=== PATIENT | female | born 1985 | race Caucasian/White ===

== ENCOUNTER → 2024-03-17 15:06 | Outpatient (REF) | payer OTHER, SELFPAY ==
[2024-03-17 11:54] LABS: % Basophils 0.3 % (0-2); % Eosinophils 0.4 % (0-6); % Immature Granulocytes 1.7 % (0-0.5); % Lymphocytes 8.5 % (20.5-51.1); % Monocytes 5.9 % (1.7-9.3); % Neutrophils 83.2 % (42.2-75.2); Absolute Immature Granulocytes 0.2 10^3/uL (0-0.05); Absolute Lymphocytes 0.8 10^3/uL (1.2-3.4); Absolute Monocytes 0.6 10^3/uL (0.1-0.6); Absolute Neutrophils 7.9 10^3/uL (1.4-6.5); Hematocrit 36.3 % (37.0-47.0); Hemoglobin 12.1 g/dL (12.0-16.0); Mean Corp Hgb Conc. 33.3 g/dL (33.0-37.0); Mean Corpuscular Volume 89.9 fL (81.0-99.0); Mean Platelet Volume 13.9 fL (7.4-10.4); Nucleated Red Blood Cells % 0 %; Platelet Count 57 10^3/uL (130-400); Red Blood Cell Count 4.04 10^6/uL (4.20-5.40); Red Cell Dist. Width 12.7 % (11.5-14.5); White Blood Cell Count 9.4 10^3/uL (4.8-10.8)
== END ==
LOC: OIDL 15:06
PROVIDERS: ATTENDING PHYSICIAN Internal Medicine Hematology & Oncology
DX: D69.6 Thrombocytopenia, unspecified (principal)
CPT/HCPCS: 85025

== ENCOUNTER 2024-03-31 15:42 | Outpatient (RCR) | payer OTHER, SELFPAY ==
[2024-03-31 08:50] LABS: % Basophils 0.3 % (0-2); % Immature Granulocytes 1.5 % (0-0.5); % Lymphocytes 10.7 % (20.5-51.1); % Monocytes 6.6 % (1.7-9.3); % Neutrophils 79.9 % (42.2-75.2); Absolute Eosinophils 0.1 10^3/uL (0-0.7); Absolute Immature Granulocytes 0.1 10^3/uL (0-0.05); Absolute Lymphocytes 0.9 10^3/uL (1.2-3.4); Absolute Monocytes 0.5 10^3/uL (0.1-0.6); Absolute Neutrophils 6.4 10^3/uL (1.4-6.5); Hematocrit 36.6 % (37.0-47.0); Hemoglobin 12.3 g/dL (12.0-16.0); Mean Corp Hgb Conc. 33.6 g/dL (33.0-37.0); Mean Corpuscular Hgb 30.3 pg (27.0-31.0); Mean Corpuscular Volume 90.1 fL (81.0-99.0); Mean Platelet Volume 13.4 fL (7.4-10.4); Platelet Count 46 10^3/uL (130-400); Red Blood Cell Count 4.06 10^6/uL (4.20-5.40)
== END 2024-04-08 23:59 | disposition home or self-care (01) ==
LOC: OID 15:42
PROVIDERS: ATTENDING PHYSICIAN Internal Medicine Hematology & Oncology
DX: D69.6 Thrombocytopenia, unspecified (principal); E61.1 Iron deficiency
CPT/HCPCS: 36415; 85025

== ENCOUNTER → 2024-04-07 13:23 | Outpatient (REF) | payer OTHER, SELFPAY | LOC: PNTC 13:23 | PROVIDERS: ATTENDING PHYSICIAN Obstetrics & Gynecology | DX: D69.6 Thrombocytopenia, unspecified (principal) | CPT/HCPCS: 76816 ==

== ENCOUNTER 2024-04-15 19:35 | Inpatient (IN) | payer OTHER, SELFPAY ==
[2024-04-15 19:43] VITALS: BP 104/51; BMI 23.0
[2024-04-15 20:53] LABS: % Basophils 0.4 % (0-2); % Eosinophils 1.3 % (0-6); % Immature Granulocytes 1.9 % (0-0.5); % Lymphocytes 10.5 % (20.5-51.1); % Monocytes 6.5 % (1.7-9.3); % Neutrophils 79.4 % (42.2-75.2); Absolute Eosinophils 0.1 10^3/uL (0-0.7); Absolute Immature Granulocytes 0.2 10^3/uL (0-0.05); Absolute Lymphocytes 1.1 10^3/uL (1.2-3.4); Absolute Monocytes 0.7 10^3/uL (0.1-0.6); Absolute Neutrophils 8.5 10^3/uL (1.4-6.5); Hematocrit 36.3 % (37.0-47.0); Hemoglobin 12.4 g/dL (12.0-16.0); Mean Corp Hgb Conc. 34.2 g/dL (33.0-37.0); Mean Corpuscular Hgb 29.6 pg (27.0-31.0); Mean Corpuscular Volume 86.6 fL (81.0-99.0); Nucleated Red Blood Cells % 0 %; Red Blood Cell Count 4.19 10^6/uL (4.20-5.40); Red Cell Dist. Width 13.2 % (11.5-14.5); White Blood Cell Count 10.7 10^3/uL (4.8-10.8)
[2024-04-15 21:11] LABS: Platelet Count 37 10^3/uL (130-400)
[2024-04-15 22:50] VITALS: BP 101/59
[2024-04-15 23:08] VITALS: BP 94/54
[2024-04-16 01:58] VITALS: BP 91/58
[2024-04-16 02:21] VITALS: BP 91/58
[2024-04-16 02:38] VITALS: BP 103/61
[2024-04-16 04:27] VITALS: BP 95/61
[2024-04-16 08:46] LABS: Hematocrit 37.2 % (37.0-47.0); Hemoglobin 12.7 g/dL (12.0-16.0); Mean Corp Hgb Conc. 34.1 g/dL (33.0-37.0); Mean Corpuscular Hgb 30.1 pg (27.0-31.0); Mean Corpuscular Volume 88.2 fL (81.0-99.0); Mean Platelet Volume 13.7 fL (7.4-10.4); Platelet Count 50 10^3/uL (130-400); Red Blood Cell Count 4.22 10^6/uL (4.20-5.40); Red Cell Dist. Width 13.3 % (11.5-14.5); White Blood Cell Count 8.8 10^3/uL (4.8-10.8)
--- NOTE | 2024-04-16 10:51 | CON.ONC ---
Impression
Impression
Thrombocytopenia associated with
Plan
Plan
Patient was labeled as gestational thrombocytopenia although it is unclear if this is truly her diagnosis based on the relative low platelet count (37,000) and refractoriness following transfusion of 2 units of platelets. Typically patient will
have a much brisker response to platelet transfusion unless they have a concomitant immune destructive cause of thrombocytopenia.
Additional 2 units were ordered but not available till at the earliest this afternoon because of [facility] supply chain issues.
Patient is not in labor and is waiting induction.
My recommendation would be to withhold induction here at [facility] and recommend transfer her to a tertiary care institution.
Long discussion with patient's primary manager systems, neonatology, and blood bank.
Tertiary care center will have more robust blood bank support as well as NICU/pediatric hematology support in case if there is evidence of alloimmune thrombocytopenia (NAIT).
Patient History
History of Present Illness
Yolanda is a 38 y/o female consulted for thrombocytopenia during . Previously had a delivery in 2020 with associated thrombocytopenia at that time with platelet count = 56,000. Previous platelet count prior was 81,000. Patient was started
by ER previous manager systems on prednisone 20 mg daily. Platelet count irving to 63,000. She was then switched to prednisone 1 mg/kg/day without response to prednisone. Follow-up platelet count was only 49,000. She was therefore deemed to be
steroid refractory. Following delivery her platelet count did rise to 102,000 but there is no history or evidence of normalization and she never had follow-up CBCs checked. At that time she was managed with platelet transfusions in the peripartum
period. She subsequently moved to [facility] where she really had no medical issues or follow-up.
She currently is being admitted for induction. She is not currently in labor. Initial platelet count yesterday = 37,000 and she was transfused 2 units of platelets with follow-up platelet count only improved to 50,000. She is hoping to avoid
epidural catheterization but apparently did have it in 2020.
As of now, there are no Rh- units of platelets available in our blood bank. We are trying to get approval from the [place] [facility] to have 2 additional units of Rh- platelets delivered by this afternoon.
Patient is anxious to determine what we are going to do about delivering her baby. Otherwise she has no additional complaints.
Past-Medical/Surgical History
PMH: multiple sclerosis since 2007, has been off her medications since early in .
Iron deficiency anemia
Thrombocytopenia worsened during in 2020 and 2023 but unclear if this is gestational thrombocytopenia or combination gestational + ITP versus alternative diagnosis of thrombocytopenia
SH:
Patient denies ever using tobacco.
Social use of alcohol.
Denies any illicit drug use.
Occupational Status: Current: Mental Health Therapist.
Patient has not had any occupational exposure.
Marital Status: Patient is
Gynecological History
Age at Menarche 13 years. Patient reports 2 pregnancies. Her age at first full term was 34 years.
Family Medical History
Family history is non-contributory.
Patient Medication
�Medication �Instructions �Recorded �Confirmed �Last Taken �Type
Vitamin D3 5,000 unit PO DAILY Supplement 10/06/19 04/15/24 04/15/24 08:00 History
Vitamin Tablet 1 tab PO DAILY Supplement 08/09/20 04/15/24 04/15/24 08:00 History
Active Medications
Generic Name Dose Route Start Last Admin
Trade Name Freq PRN Reason Stop Dose Admin
Butorphanol Tartrate 1 mg 04/15/24 20:37
Butorphanol (Stadol) 1 Mg/1 Ml Vial IV 05/13/24 20:36
Q1HPRN PRN
pain
Calcium Carbonate 400 mg 04/15/24 20:37
Calcium Antacid 200 Mg (Calcium Carbonate 500 Mg) Chew Tablet PO 05/13/24 20:36
Q6HPRN PRN
indigestion
Sodium Chloride 1,000 mls @ 0 mls/hr 04/15/24 20:45
Nss IV 04/16/24 20:37
DIRECTED KAELYN
As Directed
Promethazine HCl 12.5 mg/ 50.5 mls @ 101 mls/hr 04/15/24 20:37
Sodium Chloride IV 05/13/24 20:36
Q4HPRN PRN
nausea
Oxytocin/Sodium Chloride 30 unit in 500 mls @ 0 mls/hr 04/15/24 20:45
Pitocin 30 Units/Nss 500 Ml IV 04/16/24 20:44
DIRECTED KAELYN
As Directed
Lidocaine HCl 0 ml 04/15/24 20:37
Lidocaine Mpf 1% 30 Ml Vial INFIL 05/13/24 20:36
PRN PRN
REPAIR EPISIOTOMY/LACERATION
Methylergonovine Maleate 0.2 mg 04/15/24 20:37
Methergine (0.2 Mg/Ml) 1 Ml Injection IM
ONCE PRN PRN
excessive bleed post delivery
Sodium Chloride 0 flush 04/15/24 21:00
Sodium Chloride 0.9% (Flush) Syringe IV 05/13/24 20:59
PER PROTOCOL KAELYN
Terbutaline Sulfate 250 mcg 04/15/24 20:37
Terbutaline (1,000 Mcg/Ml) 1 Ml Vial SC
ONCE PRN PRN
tachysystole
Physical Exam
-
General: Well Developed, Well Nourished and No Apparent Distress
GI: Other (gravid abdomen)
Labs
Lab Results
WBC 8.8 10^3/uL (4.8-10.8) 04/16/24 08:18
RBC 4.22 10^6/uL (4.20-5.40) 04/16/24 08:18
Hgb 12.7 g/dL (12.0-16.0) 04/16/24 08:18
Hct 37.2 % (37.0-47.0) 04/16/24 08:18
MCV 88.2 fL (81.0-99.0) 04/16/24 08:18
MCH 30.1 pg (27.0-31.0) 04/16/24 08:18
MCHC 34.1 g/dL (33.0-37.0) 04/16/24 08:18
RDW 13.3 % (11.5-14.5) 04/16/24 08:18
Plt Count 50 10^3/uL (130-400) L D 04/16/24 08:18
MPV 13.7 fL (7.4-10.4) H 04/16/24 08:18
Abs Immat Gran (auto) 0.2 10^3/uL (0-0.05) H 04/15/24 20:40
Absolute Neuts (auto) 8.5 10^3/uL (1.4-6.5) H 04/15/24 20:40
Absolute Lymphs (auto) 1.1 10^3/uL (1.2-3.4) L 04/15/24 20:40
Absolute Monos (auto) 0.7 10^3/uL (0.1-0.6) H 04/15/24 20:40
Absolute Eos (auto) 0.1 10^3/uL (0-0.7) 04/15/24 20:40
Absolute Basos (auto) 0.0 10^3/uL (0-0.2) 04/15/24 20:40
Immature Gran % 1.9 % (0-0.5) H 04/15/24 20:40
Neutrophils % 79.4 % (42.2-75.2) H 04/15/24 20:40
Lymphocytes % 10.5 % (20.5-51.1) L 04/15/24 20:40
Monocytes % 6.5 % (1.7-9.3) 04/15/24 20:40
Eosinophils % 1.3 % (0-6) 04/15/24 20:40
Basophils % 0.4 % (0-2) 04/15/24 20:40
Vital Signs
Vital Signs
Temp Pulse Resp BP Pulse Ox
98.3 F 65 16 95/61 98
04/16/24 04:27 04/16/24 04:27 04/16/24 04:27 04/16/24 04:27 04/15/24 19:43
== END 2024-04-16 12:25 | disposition short-term general hospital (02) | DRG 833 ==
LOC: LDRP 19:35
PROVIDERS: Student in an Organized Health Care Education/Training Program; ADMITTING PHYSICIAN Obstetrics & Gynecology; CONSULT PHYSICIAN Internal Medicine Hematology & Oncology
PROC: 30233R1 Transfusion of Nonautologous Platelets into Peripheral Vein, Percutaneous Approach (ICD-10-PCS; 2024-04-15)
DX: O99.113 Other diseases of the blood and blood-forming organs and certain disorders involving the immune mechanism complicating pregnancy, third trimester (principal); D69.59 Other secondary thrombocytopenia; O99.353 Diseases of the nervous system complicating pregnancy, third trimester; O99.013 Anemia complicating pregnancy, third trimester; O34.83 Maternal care for other abnormalities of pelvic organs, third trimester; G35 Multiple sclerosis; N81.89 Other female genital prolapse; D50.9 Iron deficiency anemia, unspecified; O09.523 Supervision of elderly multigravida, third trimester; Z3A.39 39 weeks gestation of pregnancy
CPT/HCPCS: 36415; 85025; 85027; 86850; 86870; 86900; 86901; P9073

== ENCOUNTER 2024-04-21 15:53 | Day surgery (SDC) | payer OTHER, SELFPAY ==
[2024-04-21] VITALS (7 sets, daily range): BP systolic 14–105; BP diastolic 58–67; BMI 22.9
--- NOTE | 2024-04-21 12:26 | ED.GENMED ---
ED Provider Triage
<Jojo Dillon NP - Last Filed: 04/21/24 12:35>
-
Patient seen by provider in Triage?: Seen in Triage
Attestation: A medical screening examination has been initiated by a qualified medical provider. Based on the assessment performed at this time, it has been determined that an emergent medical condition may exist and the patient has been informed
that further medical evaluation and possible additional diagnostic testing may be needed.
HPI: 38-year-old female here for delivery but developed thrombocytopenia, had two platelet transfusions and transferred to [facility] where she had epidural, vaginal delivery . Now 4 days post with headache.
No complications with , dc'd home after 2 more platelet infusions and 2 IVIG infusions. Here with 10/10 headache started yesterday 10 a.m. Tylenol helped, H/A subsided. 8:30 this a.m. H/A came back, Tylenol 10 a.m. helped a little. Now H/A 4/10
with laying down. 10/10 standing. H/A is posterior, radiating down back of head to neck. Denies fever. Denies n/v.
Also right ear feels clogged.
GENERAL: Alert , moderate distress due to headache
EYE: No visual abnormalities.
HENT: No visible abnormalities.
LUNGS: No acute respiratory distress
NEUROLOGICAL: Alert and oriented
SKIN: Skin intact. No visible changes.
MUSCULOSKELETAL: Moving extremities normally
PSYCH: Normal and appropriate interaction. Speech clear, no focal neuro deficits
This is a medical evaluation conducted in person to initiate diagnostic evaluation and provide initial therapeutics. Please see further documentation by the treating clinician.
History of Present Illness
<Jojo Dillon NP - Last Filed: 04/21/24 12:35>
General
Chief Complaint: Headache
Time Seen by Provider: 04/21/24 12:58
<Priya Lopez MD - Last Filed: 04/21/24 18:53>
General
Source: patient and spouse
History of Present Illness
History of Present Illness:
38-year-old female with a history of related thrombocytopenia possibly ITP who presents to the emergency department with a headache. Patient delivered her baby on evening at [facility] and did receive an epidural at that time.
She was feeling well until yesterday at approximately 10 AM when she developed a gradual onset of a severe headache that is extremely positional. She took Motrin and Tylenol and the headache went away. She thought she may be dehydrated at that
time so she drank a lot of water. The headache returned last night and she again drink a lot of water. She woke up this morning and felt okay but then the headache again returned after waking up from a nap at around 10 AM. She feels 'fine'
meaning mild headache in the supine position but the headache is severe with the upright position. The pain is across the bifrontal area as well as the lateral neck bilaterally. She denies associated numbness, tingling, photophobia, diplopia,
chest pain, dyspnea. She says she feels like one of her ears has fluid in it but denies recent URI symptoms fever. Of note, patient did require an epidural blood patch in the past
Past History
<Priya Lopez MD - Last Filed: 04/21/24 18:53>
Past History
ED Past Medical History: Other (MS, thrombocytopenia, anemia)
Social History
Alcohol: None
Drug: None
Personal:
Living: with family
Phy Exam
<Priya Lopez MD - Last Filed: 04/21/24 18:53>
Physical Exam
Physical Exam:
GENERAL: Alert , in no apparent distress, very pleasant, lucid
EYE: pupils equal and reactive, EOMI, no photophobia
NECK: Supple, no significant adenopathy.
ENT: o/p clr, mmm, TMs clear bilaterally.
CARDIAC: Regular rate and rhythm .
LUNGS: Clear breath sounds bilaterally, no acute respiratory distress, no wheezes/rales/rhonchi
ABDOMEN: Soft, without focal tenderness, no r/g, no cvat
NEUROLOGICAL: Alert and oriented, no focal neuro deficits, moves all extremities equally, speech clear, sensation intact throughout. Patient noted to walk to bathroom without difficulty except that she leaned over to try to limit an upright
position which exacerbates the headache.
SKIN: Warm and dry, skin intact.
MUSCULOSKELETAL: No edema, well perfused.
PSYCH: Normal and appropriate interaction.
Course
<Jojo Dillon FELLED SEAM OPERATOR - Last Filed: 04/21/24 12:35>
Orders/Labs/Results
Orders:
Orders
04/21/24 12:36
Complete Blood Count/With Diff Urgent
Comprehensive Metabolic Panel Urgent
04/21/24 13:59
0.9% Sodium Chloride 1000 ml [Nss] 1,000 ml IV BOLUS
04/21/24 14:18
Acetaminophen [Tylenol] 1,000 mg PO NOW STA
Abnormal Lab Results
04/21/24
12:36
RBC 3.92 L 10^6/uL
(4.20-5.40)
Hgb 11.8 L g/dL
(12.0-16.0)
Hct 33.9 L %
(37.0-47.0)
Plt Count 95 L D 10^3/uL
(130-400)
MPV 12.2 H fL
(7.4-10.4)
Abs Immat Gran (auto) 0.1 H 10^3/uL
(0-0.05)
Absolute Neuts (auto) 6.9 H 10^3/uL
(1.4-6.5)
Absolute Lymphs (auto) 0.9 L 10^3/uL
(1.2-3.4)
Immature Gran % 1.1 H %
(0-0.5)
Neutrophils % 81.1 H %
(42.2-75.2)
Lymphocytes % 10.1 L %
(20.5-51.1)
Sodium 134 L mmol/L
(135-145)
Albumin 3.2 L g/dl
(3.5-5.0)
04/21/24 12:36
04/21/24 12:36
Vital Signs
Initial and Last Documented VS:
Initial Vital Signs
Temp Pulse Resp BP Pulse Ox
97.9 F 61 18 95/63 98
04/21/24 12:24 04/21/24 12:24 04/21/24 12:24 04/21/24 12:24 04/21/24 12:24
Last Documented Vital Signs
Temp Pulse Resp BP Pulse Ox
98.3 F 48 16 104/58 99
04/21/24 16:15 04/21/24 17:40 04/21/24 17:40 04/21/24 17:40 04/21/24 17:40
<Priya Lopez MD - Last Filed: 04/21/24 18:53>
Orders/Labs/Results
Orders:
Orders
04/21/24 12:36
Complete Blood Count/With Diff Urgent
Comprehensive Metabolic Panel Urgent
04/21/24 13:59
0.9% Sodium Chloride 1000 ml [Nss] 1,000 ml IV BOLUS
04/21/24 14:18
Acetaminophen [Tylenol] 1,000 mg PO NOW STA
Abnormal Lab Results
04/21/24
12:36
RBC 3.92 L 10^6/uL
(4.20-5.40)
Hgb 11.8 L g/dL
(12.0-16.0)
Hct 33.9 L %
(37.0-47.0)
Plt Count 95 L D 10^3/uL
(130-400)
MPV 12.2 H fL
(7.4-10.4)
Abs Immat Gran (auto) 0.1 H 10^3/uL
(0-0.05)
Absolute Neuts (auto) 6.9 H 10^3/uL
(1.4-6.5)
Absolute Lymphs (auto) 0.9 L 10^3/uL
(1.2-3.4)
Immature Gran % 1.1 H %
(0-0.5)
Neutrophils % 81.1 H %
(42.2-75.2)
Lymphocytes % 10.1 L %
(20.5-51.1)
Sodium 134 L mmol/L
(135-145)
Albumin 3.2 L g/dl
(3.5-5.0)
04/21/24 12:36
04/21/24 12:36
Vital Signs
Initial and Last Documented VS:
Initial Vital Signs
Temp Pulse Resp BP Pulse Ox
97.9 F 61 18 95/63 98
04/21/24 12:24 04/21/24 12:24 04/21/24 12:24 04/21/24 12:24 04/21/24 12:24
Last Documented Vital Signs
Temp Pulse Resp BP Pulse Ox
98.3 F 48 16 104/58 99
04/21/24 16:15 04/21/24 17:40 04/21/24 17:40 04/21/24 17:40 04/21/24 17:40
<Priya Lopez MD - Last Filed: 04/21/24 18:53>
*Critical Care Note
Total Time (30-74mins, 75-104mins- exclusive of procedures): Not Applicable
<Priya Lopez MD - Last Filed: 04/21/24 18:53>
Update Note
Update Note:
Patient presents to the Emergency Department with __headache
Number and Complexity of Problems Addressed at the Encounter
� Chronic conditions affecting care:
� Acute Exacerbation and/or Progression of Chronic Illness:
� Differential Diagnosis includes: But not limited to dehydration, post spinal headache, meningitis, intracranial bleed, etc. etc.
Amount and/or Complexity of Data to be Reviewed and Analyzed
� I performed an independent evaluation of and my interpretation is:
EKG:
CT:
Xrays:
Laboratory Studies: Platelet count is improved at 95, anemia baseline at 11.8
Other:
� Review of other/old records reveals:
� Clinical information was obtained by an independent historian: who is bedside, prior medical record from when patient was transferred last week to [facility] given her thrombocytopenia
� Prescriptions/Medications Considered but not given:
� Further testing considered but not performed:
Risk of Complications and/or Morbidity or Mortality of Patient Management
� Social determinants of health affecting care:
� Discussion with other providers (PCP, Hospitalists, Consultants, etc):
� Escalation of care including admission/observation vs risk of discharge considered: 3:31 PM I did reach out to [facility] as they were the one that did the actual epidural, the only time that they can provide a blood patch would
be after 7 AM tomorrow at the labor and delivery triage area in the [facility]. In the meantime I reached out to our anesthesia team and spoke with Dr. ESPINOSA via [facility] text, he is agreeable to doing a blood patch for her and patient is
being transported to PACU at this time. Patient overall looks well. She does have a severe headache when she stands up but otherwise is eating and drinking as usual, currently pumping, etc.
ED Attending Note
<Jojo Dillon NP - Last Filed: 04/21/24 12:35>
-
Portions of this chart may have been created with voice recognition software.� Occasional wrong word or��sound alike� substitutions may have occurred due to the inherent limitations of voice recognition software.
Discharge Plan
Departure
Patient Disposition: Other
Date of Disposition: 04/21/24
Time of Disposition: 15:30
Discharge Problem:
spinal headache
Interventions
Interventions:
*Risk Screen - Suicide Last Done: 04/21/24 13:10
*General Assessment Last Done: 04/21/24 13:10
*Neglect/Abuse Screening Last Done: 04/21/24 13:10
ED- Fall Risk Assessment Last Done: 04/21/24 13:10
*ED COVID-19 Vaccine History Last Done: 04/21/24 13:10
*Nursing Disposition Last Done: 04/21/24 15:52
ED- Neurological Assessment Last Done: 04/21/24 13:10
Discharge Date and Time
Discharge Date/Time: 04/21/24 15:53
[2024-04-21 12:46] LABS: % Basophils 0.5 % (0-2); % Eosinophils 2.4 % (0-6); % Immature Granulocytes 1.1 % (0-0.5); % Lymphocytes 10.1 % (20.5-51.1); % Monocytes 4.8 % (1.7-9.3); % Neutrophils 81.1 % (42.2-75.2); Absolute Eosinophils 0.2 10^3/uL (0-0.7); Absolute Immature Granulocytes 0.1 10^3/uL (0-0.05); Absolute Lymphocytes 0.9 10^3/uL (1.2-3.4); Absolute Monocytes 0.4 10^3/uL (0.1-0.6); Absolute Neutrophils 6.9 10^3/uL (1.4-6.5); Hematocrit 33.9 % (37.0-47.0); Hemoglobin 11.8 g/dL (12.0-16.0); Mean Corp Hgb Conc. 34.8 g/dL (33.0-37.0); Mean Corpuscular Hgb 30.1 pg (27.0-31.0); Mean Corpuscular Volume 86.5 fL (81.0-99.0); Mean Platelet Volume 12.2 fL (7.4-10.4); Nucleated Red Blood Cells % 0 %; Platelet Count 95 10^3/uL (130-400); Red Blood Cell Count 3.92 10^6/uL (4.20-5.40); Red Cell Dist. Width 13.2 % (11.5-14.5); White Blood Cell Count 8.5 10^3/uL (4.8-10.8)
--- NOTE | 2024-04-21 13:11 | EDRN ---
Pt states she had given w/ epidural on night. Pt is presently nursing and mild came in yesterday when her H/A started. Pt took motrin/tylenol yesterday w/ relief. Pt awoke again w/ H/a during the night and this am awoke from a nap and
unable to stand took tylenol [address] after nap at [facility] 10:00 and w/ no relief left for here at [facility] 11:00. Pt states her pain is around her eyes, over her face and worst is at nape of neck. Pain is 3/10 lying and 10/10 sitting or standing.
[2024-04-21 13:14] LABS: ALT (SGPT) 23 U/L (0-35); AST (SGOT) 32 U/L (14-36); Albumin 3.2 g/dl (3.5-5.0); Alkaline Phosphatase 99 U/L (38-126); Blood Urea Nitrogen 15 mg/dl (7-17); Calcium 8.9 mg/dl (8.4-10.2); Carbon Dioxide 26 mmol/L (22-30); Chloride 101 mmol/L (98-107); Estimated Creatinine Clearance > 125 ml/min; Glucose 77 mg/dl (70-99); Potassium 4.4 mmol/L (3.5-5.1); Sodium 134 mmol/L (135-145); Total Bilirubin 0.3 mg/dl (0.2-1.3); Total Protein 6.4 g/dl (6.3-8.2); eGFR > 60.00
--- NOTE | 2024-04-21 13:42 | EDRN ---
Pt pumped and given water to prevent dehydration. Pt given bottle for her mild that was pumped for her dad to take home who is coming in to get it. Dr. Lopez presently in room w/ pt.
--- NOTE | 2024-04-21 14:15 | EDRN ---
Attempted IV access w/out success and pt stated she gets PTSD w/ IV attempts. Unable to get access and pt after had a PTSD attack, unable to have anyone near, wanting to sit up though unable to.
[2024-04-21] MEDS: NSS 1000 IV (14:30)
[2024-04-21] MEDS: TYLENOL 1000 MG PO (14:36)
--- NOTE | 2024-04-21 14:48 | EDRN ---
Pt eating a boxed lunch at this time and given plenty of water.
--- NOTE | 2024-04-21 14:49 | EDRN ---
Dr. Lopez in room w/pt at this time.
== END 2024-04-21 18:01 | disposition home or self-care (01) ==
LOC: SDS 15:53
PROVIDERS: Registered Nurse; EMERGENCY PHYSICIAN Emergency Medicine
DX: O89.4 Spinal and epidural anesthesia-induced headache during the puerperium (principal)
CPT/HCPCS: 62273; 80053; 85025; 96360; 99285

== ENCOUNTER 2024-08-06 13:10 | Outpatient (RCR) | payer OTHER, SELFPAY | END 2024-08-06 23:59 | disposition home or self-care (01) | LOC: RPT 13:10 | PROVIDERS: ATTENDING PHYSICIAN Obstetrics & Gynecology | DX: N81.3 Complete uterovaginal prolapse (principal); Z73.6 Limitation of activities due to disability; K60.2 Anal fissure, unspecified | CPT/HCPCS: 97110; 97112; 97161; 97530 ==

== ENCOUNTER 2024-08-22 09:02 | Outpatient (RCR) | payer OTHER, SELFPAY | END 2024-08-22 23:59 | disposition home or self-care (01) | LOC: RPT 09:02 | PROVIDERS: ATTENDING PHYSICIAN Obstetrics & Gynecology | DX: N81.3 Complete uterovaginal prolapse (principal); Z73.6 Limitation of activities due to disability; K60.2 Anal fissure, unspecified | CPT/HCPCS: 97110; 97112 ==

== ENCOUNTER 2025-03-20 06:38 | Day surgery (SDC) | payer OTHER, SELFPAY | END 2025-03-20 08:34 | disposition home or self-care (01) | LOC: GI 06:38 | PROVIDERS: ATTENDING PHYSICIAN Internal Medicine Gastroenterology | DX: Z12.11 Encounter for screening for malignant neoplasm of colon (principal); Q43.8 Other specified congenital malformations of intestine; K64.8 Other hemorrhoids; Z86.0100 Personal history of colon polyps, unspecified | CPT/HCPCS: G0105 ==